=== PATIENT | male | born 1985 | race African-American/Black ===

== ENCOUNTER 2018-05-01 17:50 | Emergency (ER) | payer SELFPAY ==
[2018-05-01] MEDS ORDERED: Mag-Al 1200 mg/1200 mg/30 ML UDCUP ONE (18:53)
[2018-05-01] MEDS ORDERED: Lidocaine Viscous Sol 2% 15 ml UD Cup ONE (18:53)
[2018-05-01 19:08] LABS: #Basophils 0.1 thou/uL (0.0-0.2); #Eosinphils 0.2 thou/uL (0.0-0.7); #Lymphocytes 2.1 thou/uL (1.20-3.40); #Monocytes 0.4 thou/uL (0.11-0.59); #Neutrophils 1.9 thou/uL (1.40-6.50); %Basophils 1.7 % (0.0-1.0); %Eosinophils 4.6 % (0.0-10.0); %Lymphocytes 44.8 % (21.0-51.0); %Monocytes 9.2 % (0.0-10.0); %Neutrophils 39.8 % (42.0-75.0); Hemoglobin 15.2 g/dL (14.0-18.0); Mean Corpuscular HGB CONC 34.6 g/dL (32.0-36.0); Mean Corpuscular Volume 92.3 fL (78.0-98.0); Mean Platelet Volume 8.5 fL (7.4-10.4); Platelet Count 252 thou/uL (130-400); RBC Distribution Width 11.4 % (11.5-14.5); Red Blood Cell (RBC) Count 4.75 mill/uL (4.70-6.10); White Blood Cell (WBC) Count 4.7 thou/uL (4.8-10.8)
[2018-05-01 19:27] LABS: ALT (SGPT) 19 U/L (8-55); AST (SGOT) 16 U/L (5-34); Albumin 3.7 g/dL (3.5-5.0); Alkaline Phosphatase 64 U/L (40-150); Anion Gap 11 mmol/L (10-20); BUN (Urea Nitrogen) 11 mg/dL (8.9-20.6); Bilirubin, Total 0.6 mg/dL (0.2-1.2); Calc. Creatinine Clearance 0 mL/min (70-130); Calcium 9.2 mg/dL (7.8-10.44); Carbon Dioxide 24 mmol/L (22-29); Chloride 106 mmol/L (98-107); Estimated GFR-MDRD Greater than 90; Globulin 3.3 g/dL (2.4-3.5); Glucose 93 mg/dL (70-105); Lipase 37 U/L (8-78); Sodium 137 mmol/L (136-145)
--- NOTE | 2018-05-01 19:34 | RAD ---
PA AND LATERAL CHEST: 05/01/18 HISTORY: Chest pain. Heart size and mediastinum are within normal limits. The lungs are clear of infiltrates. No significa nt bony findings. IMPRESSION: No active intrathoracic disease. POS: [facility]
== END 2018-05-01 19:56 | disposition home or self-care (01) ==
LOC: ERS 17:50
DX: R10.13 Epigastric pain (principal); F17.210 Nicotine dependence, cigarettes, uncomplicated
CPT/HCPCS: 36415; 71046; 80053; 83690; 85025; 93005

== ENCOUNTER 2019-08-25 09:09 | Inpatient (IN) | payer SELFPAY ==
[2019-08-25] MEDS ORDERED: Acetaminophen 500 MG TAB ONE (09:51)
[2019-08-25] MEDS ORDERED: Metoclopramide HCl 10 MG/2 ML VIAL ONE (09:52)
[2019-08-25] MEDS ORDERED: diphenhydrAMINE 50 MG/ML VIAL ONE (09:52)
[2019-08-25 10:15] LABS: #Basophils 0.1 thou/uL (0.0-0.2); #Eosinphils 0.1 thou/uL (0.0-0.7); #Lymphocytes 1.7 thou/uL (1.20-3.40); #Monocytes 0.7 thou/uL (0.11-0.59); #Neutrophils 2.7 thou/uL (1.40-6.50); %Basophils 0.3 % (0.0-1.0); %Eosinophils 1.7 % (0.0-10.0); %Lymphocytes 32.5 % (21.0-51.0); %Monocytes 10.5 % (0.0-10.0); %Neutrophils 52.2 % (42.0-75.0); Mean Platelet Volume 9.6 fL (7.4-10.4); Platelet Count 213 thou/uL (130-400); RBC Distribution Width 11.4 % (11.5-14.5); Red Blood Cell (RBC) Count 4.62 mill/uL (4.70-6.10); White Blood Cell (WBC) Count 5.2 thou/uL (4.8-10.8)
[2019-08-25 10:19] LABS: ALT (SGPT) 39 U/L (8-55); AST (SGOT) 24 U/L (5-34); Albumin 3.6 g/dL (3.5-5.0); Alkaline Phosphatase 110 U/L (40-110); Anion Gap 24 mmol/L (10-20); BUN (Urea Nitrogen) 20 mg/dL (8.9-20.6); Bilirubin, Total 0.6 mg/dL (0.2-1.2); CK (CPK) 88 U/L (30-200); Calc. Creatinine Clearance 0 mL/min (70-130); Calcium 9.6 mg/dL (7.8-10.44); Carbon Dioxide 17 mmol/L (22-29); Chloride 95 mmol/L (98-107); Estimated GFR-MDRD 55; Globulin 4.1 g/dL (2.4-3.5); Lipase 47 U/L (8-78); Potassium 4.3 mmol/L (3.5-5.1); Protein, Total 7.7 g/dL (6.0-8.3); Sodium 132 mmol/L (136-145)
[2019-08-25 10:26] LABS: Glucose 679 mg/dL (70-105); Mean Corpuscular Hemoglobin 30.3 pg (27.0-31.0)
[2019-08-25 10:27] LABS: Mean Corpuscular HGB CONC 34.8 g/dL (32.0-36.0)
--- NOTE | 2019-08-25 11:03 | RAD ---
Chest one view HISTORY: Dyspnea. COMPARISON: 05/01/2018. FINDINGS: Cardiac silhouette is magnified by projection. Shallow inspiration accentuates pulmonary ma rkings. Mediastinum is rotated rightward with the patient. No lobar consolidation or evidence of pneumothorax. property assessment monitor leads overlie the chest. IMPRESSION : No abnormalities are demonstrated.
[2019-08-25] MEDS ORDERED: Insulin Regular 300 UNITS/3 ML VIAL ONE (11:43)
[2019-08-25] MEDS ORDERED: Insulin Regular 100 units/100 ml in NS IVPB SCH ×2 (12:00→14:00)
--- NOTE | 2019-08-25 12:02 | PDOC.FPRHP ---
- History of Present Illness Chief Complaint: dehydration History of Present Illness: This 34-yo male without PCP presents complaining of R-sided headache, polyuria, polydipsia, and feeling dehydrated. Reports symptoms have been ongoing for about 2 months. He denies nausea, vomiting, abdominal pain, dysuria, and hematuria. He has been able to eat and drink without difficulty. His only past medical history is heartburn for which he takes OTC medications. For his headache he tried Tylenol and ibuprofen which has not helped much. ED Course: Received 2L NS and insulin drip started. - Allergies/Adverse Reactions Allergies Allergy/AdvReac Type Severity Reaction Status Date / Time No Known Allergies Allergy Unverified 08/25/19 11:57 - Home Medications Medication Instructions Recorded Confirmed Type Acetaminophen [Tylenol Extra 500 mg PO Q8H PRN 08/26/19 08/26/19 History Strength] Comments: Denies. No home medications besides OTC mentioned above. - History PMHx: mild heartburn PSHx: unobtainable due to patient lethargy FHx: Dad: diabetes, adult onset Social: unobtainable due to patient lethargy - Review of Systems ROS unobtainable: due to mental status General: reports: fever/chills, fatigue Respiratory: reports: cough (very mild and intermittent) Gastrointestinal: denies: nausea, vomiting, diarrhea, constipation, abdominal pain, GI bleeding Genitourinary: denies: dysuria - Vital signs BP: 124/93, Pulse: 95, Resp: 18, Temp: 98.6 (Oral), Pain: 4, O2 sat: 96 on ( Room Air), Time: 08/25/2019 12:45. Weight: 63 kg. - Physical Exam -Constitutional: lethargic appearing, AxO x3 but some inappropriate answers to questions HEENT: normocephalic and atraumatic, PERRLA, EOMI, no scleral icterus, grossly normal hearing, normal nasal mucosa, MMM, oropharynx clear Neck: supple, trachea midline, no LAD, no thyromegaly Heart: RRR, normal S1/S2, no murmurs/rubs/gallops, pulses present (equal and 2+ radial and DP pulses) Lungs: CTAB, no respiratory distress Abdomen: soft, non-tender, bowel sounds present, no masses/distention Musculoskeletal: normal structure, normal tone Skin: no rash/lesions, no jaundice Heme/Lymphatic: no unusual bruising or bleeding, no purpura Psychiatric: normal mood and affect FMR H&P: Results - Labs Result Diagrams: 08/25/19 09:40 08/26/19 03:22 Lab results: WBC 5.2 thou/uL (4.8-10.8) 08/25/19 09:40 Hgb 14.0 g/dL (14.0-18.0) 08/25/19 09:40 Hct 40.2 % (42.0-52.0) L 08/25/19 09:40 MCV 87.0 fL (78.0-98.0) 08/25/19 09:40 Plt Count 213 thou/uL (130-400) 08/25/19 09:40 Neutrophils % 52.2 % (42.0-75.0) 08/25/19 09:40 Sodium 132 mmol/L (136-145) L 08/25/19 09:40 Potassium 4.3 mmol/L (3.5-5.1) 08/25/19 09:40 Chloride 95 mmol/L (98-107) L 08/25/19 09:40 Carbon Dioxide 17 mmol/L (22-29) L 08/25/19 09:40 BUN 20 mg/dL (8.9-20.6) 08/25/19 09:40 Creatinine 1.73 mg/dL (0.7-1.3) H 08/25/19 09:40 Glucose 679 mg/dL (70-105) H* 08/25/19 09:40 Calcium 9.6 mg/dL (7.8-10.44) 08/25/19 09:40 Total Bilirubin 0.6 mg/dL (0.2-1.2) 08/25/19 09:40 AST 24 U/L (5-34) 08/25/19 09:40 ALT 39 U/L (8-55) 08/25/19 09:40 Alkaline Phosphatase 110 U/L (40-110) 08/25/19 09:40 Creatine Kinase 88 U/L (30-200) 08/25/19 09:40 Serum Total Protein 7.7 g/dL (6.0-8.3) 08/25/19 09:40 Albumin 3.6 g/dL (3.5-5.0) 08/25/19 09:40 Lipase 47 U/L (8-78) 08/25/19 09:40 - Radiology Interpretation Chest x-ray Status: report reviewed by me (normal) FMR H&P: A/P - Problem List (1) New onset type 2 diabetes mellitus Current Visit: No Status: Acute Code(s): E11.9 - TYPE 2 DIABETES MELLITUS WITHOUT COMPLICATIONS (2) Acute kidney injury Current Visit: No Status: Acute Code(s): N17.9 - ACUTE KIDNEY FAILURE, UNSPECIFIED (3) Hyperosmolar hyperglycemic coma due to diabetes mellitus without ketoacidosis Current Visit: Yes Status: Acute Code(s): E11.01 - TYPE 2 DIABETES MELLITUS WITH HYPEROSMOLARITY WITH COMA - Plan 34-yo Male admitted for : Hyperosmolar Hyperglycemic State New onset likely Type 2 diabetes mellitus - DKA protocol, insulin drip started - NPO strict - strict I/Os - ABG pH 7.32, beta-hydroxybutyrate 3.3, bicarb 17 - anion gap of 20 - reassess mental status in AM - risk stratrifying labs in AM - A1C 13.6% - Diabetes education Code: FULL VTE PPx: LVX GI ppx: none Fluids: per DKA protocol Disposition/LOS: admit to IMCU for DKA protocol. Anticipate LOS > 48 hr. FMR H&P: Upper Level - Plan Date/Time: 08/25/19 1201 IAlis, have evaluated this patient and agree with findings/plan as outlined by inclusion intern resident. Pertinent changes/additions are listed here. Pt is a 34yo M with no PMH presenting for 1 month hx of polydipsia, polyuria and general unwell feeling. He also endorses REBOLLEDO. +Fhx of diabetes in father. He does endorse epigastric abd pain that is mild. Otherwise denies fever, cough , skin infection, dysuria. VS: BP 135/84, P98, R16, T98.3, O296%RA PE: Gen: well developed, NAD HEENT: Dry MM, no LAD, no oral lesions Heart: RRR, no murmurs or extra sounds. Distal pulses 2+ Lungs: CTAB, no wheezing. No increased work of breathing Abd: soft, nontender, BS+ Ext: no cyanosis or edema Skin: no rashes or wounds present Psych: AOx3, nonsensical to some degree Pertinent Labs/Imaging: CXR: no acute findings CBC unremarkable ABG: ph-7.3, pCO2-033.2, PO2-86.8, Bicarb-16.8 Glucose: 679 A UA proteinuria and glucosuria with ketones Betahydroxybutyrate- 3.3 A/P: HHS: -place on insulin drip and IVF per DKA protocol, does have anion gap and beta- hydroxybutyrate >3 but pH >7.3. BMP q4h. NPO -no suspected infection and trop wnl. Likely cause is longstanding DM untreated. WBC wnl. Add lipase with reported epigastric pain. New onset Likely T2DM: -A1c pending -PO meds vs insulin at discharge. Anion Gap Metabolic Acidosis: -related to beta-hydroxybutyrate vs other acid such as lactic acid. MARIBELL vs CKD: -likely MARIBELL related to dehydration. -trend Dispo: Stable. DVT PPx: Lovenox Addendum - Attending - Attending Attestation Date/Time: 08/26/19 9243 I personally evaluated the patient and discussed the management with Dr. Shah on 08/25/2019 I agree with the History, Examination, Assessment and Plan documented above with any addition or exceptions noted below - Pt is a 34yo M with no PMH presenting for 1 month hx of polydipsia, polyuria and general unwell feeling. He also endorses REBOLLEDO. (+) Fhx of diabetes in father. He does endorse epigastric abd pain that is mild. Otherwise denies fever, cough, skin infection, dysuria. Denies any weight loss. PMH/PSH.Meds/SH reviewed and agree with resident's documentation. Aferile VSS. Exam repeated by me and agree with resident's documentation. Labs: H/H = 14.0/40.2, WBC=5.2, Id=726, K=4.3, Cl=95, CO2=17, BUN /Cr= 20/1.73, Gluc= 679. (+)beta-hydroxybutyrate. A/P: 1) HHS- continue iVF and insulin dri; monitor accuchecks. 2) Newly diagnosed DM - nutrition and education regarding DM, insulin administration, BG monitoring.
[2019-08-25 12:10] LABS: Base Excess-Venous -3.6 mmol/L (-2.0 to 3.0); Bicarbonate (HCO3v) 20.2 mmol/L (22.0-28.0); CO2 Tension (PvCO2) 32.3 mmHg (40.0-50.0); Calcium, Ionized 1.06 mmol/L (See Comments:); Chloride 106 mmol/L (98-107); Hemoglobin - Calc 13.2 g/dL (14.0-18.0); Potassium 5.8 mmol/L (3.5-5.1); Sodium 136 mmol/L (138-145); T. Carbon Dioxide 21.2 mmol/L (22.0-28.0); vO2 Saturation-calc 96.9 % (60.0-85.0)
[2019-08-25 12:17] LABS: Actual Bicarbonate (HCO3a) 16.8 mEq/L (22-28); Analyzer IN Cardio ER; Base Excess (BEa) -8.1 mEq/L (-2.0 to +3.0); CO2 Tension 33.2 mmHg (35.0-45.0); Carboxyhemoglobin (COHb) 0.1 gm% (0.0-3.0); Hemoglobin (Hb) 14.1 g/dL (14.0-18.0); O2 Tension (PaO2) 86.8 mmHg (80.0-100.0); Potassium - ABG Lab 4.04 mmol/L (3.70-5.30); pH, Arterial 7.32 (7.35-7.45)
[2019-08-25 12:18] LABS: Puncture Site RRA
[2019-08-25] MEDS ORDERED: NS 0.9% w/ 20 MEQ KCL 1,000 ML IV PRN ×4 (12:29→14:09)
[2019-08-25] MEDS ORDERED: Acetaminophen 325 MG TAB PO PRN (12:29)
[2019-08-25] MEDS ORDERED: Dextrose 5 %-0.45 % NaCl 1,000 ML IV PRN ×2 (12:29→14:01)
[2019-08-25] MEDS ORDERED: Sodium Chloride 0.9% 1,000 ML IV PRN ×8 (12:29→14:16)
[2019-08-25] MEDS ORDERED: Ondansetron ODT 4 MG TAB PO PRN ×2 (12:29→14:11)
[2019-08-25] MEDS ORDERED: Ondansetron PF 4 MG/2 ML Vial IVP PRN ×2 (12:29→14:10)
[2019-08-25] MEDS ORDERED: D5 1/2 NS w/20 mEq KCL 1,000 ML IV PRN ×2 (12:29→14:04)
[2019-08-25] MEDS ORDERED: [UNRECOGNIZED DRUG - OTHER] IVPB ONE (12:29)
[2019-08-25] MEDS ORDERED: HUMULIN R 100 UNITS in Sodium Chloride 0.9% 100 ML IVPB SCH (12:30)
[2019-08-25] MEDS ORDERED: Potassium Chloride 20 MEQ TAB PO PRN ×2 (12:44→14:16)
[2019-08-25] MEDS ORDERED: CCU ELECTROLYTE REPLACEMENT PROTOCOL FS PRN (12:44)
[2019-08-25] MEDS ORDERED: Potassium Phosphate 9 MMOL in Sodium Chloride 0.9% 100 ML IVPB PRN ×2 (12:44→14:21)
[2019-08-25] MEDS ORDERED: Potassium Chloride 40 MEQ in Sodium Chloride 0.9% 250 ML 250 ML IVPB PRN ×2 (12:44→14:19)
[2019-08-25] MEDS ORDERED: Magnesium Oxide 400 MG TAB PO PRN ×4 (12:44→14:07)
[2019-08-25] MEDS ORDERED: Potassium Phosphate 12 MMOL in Sodium Chloride 0.9% 250 ML 250 ML IV PRN ×2 (12:44→14:21)
[2019-08-25] MEDS ORDERED: Potassium Chloride 40 MEQ in Premix Bag 1 BAG IVPB PRN ×2 (12:44→14:20)
[2019-08-25] MEDS ORDERED: Magnesium 2 GM/50 ML 2 GM in Premix Bag 1 BAG IVPB PRN ×2 (12:44→14:06)
[2019-08-25] MEDS ORDERED: PHOS-NAK 1 PKT PACK PO PRN ×4 (12:44→14:12)
[2019-08-25] MEDS ORDERED: Potassium Phosphate 15 MMOL in Sodium Chloride 0.9% 250 ML 250 ML IV PRN ×2 (12:44→14:21)
[2019-08-25] MEDS ORDERED: Enoxaparin Sodium 40 MG/0.4 ML SYRINGE SC SCH ×2 (12:45→14:15)
[2019-08-25 12:59] LABS: Hemoglobin A1c 13.6 % (4.0-6.0)
[2019-08-25 13:14] LABS: Anion Gap 22 mmol/L (10-20); BUN (Urea Nitrogen) 17 mg/dL (8.9-20.6); Calc. Creatinine Clearance 0 mL/min (70-130); Calcium 8.9 mg/dL (7.8-10.44); Carbon Dioxide 13 mmol/L (22-29); Chloride 106 mmol/L (98-107); Estimated GFR-MDRD 67; Glucose 490 mg/dL (70-105); Magnesium 2.1 mg/dL (1.6-2.6); Phosphorus 2.8 mg/dL (2.3-4.7); Sodium 137 mmol/L (136-145)
[2019-08-25 13:29] LABS: Bacteria/HPF None Seen HPF (None Seen); Bilirubin Negative (Negative); Blood, Urine Negative (Negative); Clarity Clear (Clear); Glucose, Urine (Dipstick) Greater than 1000 mg/dL (Negative); Leukocyte Negative Leu/uL (Negative); Nitrite Negative (Negative); Protein, Urine (Dipstick) 50 mg/dL (Neg-Trace); RBC/HPF None Seen HPF (0-3); Squamous Epithelial None Seen HPF (0-3); Urobilinogen Normal mg/dL (Less than 2); WBC/HPF 0-3 HPF (0-3)
[2019-08-25] MEDS: Acetaminophen 325 MG TAB PO PRN ×3 (14:34→23:16)
[2019-08-25 14:38] LABS: Amphetamine Not Detected (NotDetected); Barbiturates Screen Not Detected (NotDetected); Benzodiazepine Screen Not Detected (NotDetected); Cocaine Metabolite Screen Not Detected (NotDetected); Medtox Control Line Valid? VALID (VALID); Medtox Reader # READER 4; Methadone Not Detected (NotDetected); Methamphetamine Not Detected (NotDetected); Opiate Screen Not Detected (NotDetected); Oxycodone Screen Not Detected (NotDetected); Phencyclidine (PCP) Not Detected (NotDetected); THC/Cannabinoid Screen Not Detected (NotDetected); Tricyclic Screen Not Detected (NotDetected)
[2019-08-25 15:27] VITALS: BMI 34.9
[2019-08-25 18:54] LABS: Anion Gap 17 mmol/L (10-20); BUN (Urea Nitrogen) 13 mg/dL (8.9-20.6); Calc. Creatinine Clearance 144 mL/min (70-130); Calcium 8.3 mg/dL (7.8-10.44); Carbon Dioxide 19 mmol/L (22-29); Chloride 111 mmol/L (98-107); Estimated GFR-MDRD Greater than 90; Glucose 139 mg/dL (70-105); Potassium 3.9 mmol/L (3.5-5.1); Sodium 143 mmol/L (136-145)
[2019-08-25] MEDS ORDERED: Insulin Glargine 52 UNITS in Pre-Filled Syringe 1 EACH SC SCH (21:00)
[2019-08-25] MEDS: Lactated Ringer's 1,000 ML IV SCH (22:37)
[2019-08-26] MEDS ORDERED: Dextrose 50% Abboject 50 ML SYRINGE SLOW IVP PRN (01:04)
[2019-08-26] MEDS ORDERED: Dextrose 5% in Water 1,000 ML IV PRN (01:04)
[2019-08-26] MEDS ORDERED: HumaLOG 300 UNITS/3 ML VIAL SC PRN ×2 (01:04→17:33)
[2019-08-26] MEDS ORDERED: diphenhydrAMINE 25 MG CAP PO SCH (02:45)
[2019-08-26] MEDS: Acetaminophen 325 MG TAB PO PRN ×5 (02:49→23:53)
[2019-08-26 04:10] LABS: Anion Gap 13 mmol/L (10-20); BUN (Urea Nitrogen) 9 mg/dL (8.9-20.6); Calc. Creatinine Clearance 127 mL/min (70-130); Calcium 7.8 mg/dL (7.8-10.44); Carbon Dioxide 21 mmol/L (22-29); Chloride 105 mmol/L (98-107); Estimated GFR-MDRD 83; Glucose 355 mg/dL (70-105); Potassium 3.6 mmol/L (3.5-5.1); Sodium 135 mmol/L (136-145)
--- NOTE | 2019-08-26 06:20 | PDOC.FM ---
- Subjective Subjective: Ate some pudding and a banana last night. Reports drinking gatorade and some water. Willing to try breakfast. He is off the insulin gtt and received Lantus last night. - Objective MAR Reviewed: Yes Vital Signs & Weight: Vital Signs (12 hours) Temp Pulse Ox 08/26/19 04:00 97.6 F 08/25/19 23:42 97.4 F L 08/25/19 20:00 97.5 F L 95 08/25/19 19:29 99 Weight Weight 104.326 kg Most Recent Monitor Data Heart Rate from ECG 71 NIBP 139/96 NIBP BP-Mean 110 Respiration from ECG 9 SpO2 99 I&O: 08/24/19 08/25/19 08/26/19 06:59 06:59 06:59 Intake Total 4693 Output Total 1550 Balance 3143 Result Diagrams: 08/25/19 09:40 08/26/19 03:22 Phys Exam - Physical Examination Constitutional: NAD Dry MM Neck: supple Respiratory: no wheezing, clear to auscultation bilateral Cardiovascular: RRR, no significant murmur Gastrointestinal: soft Musculoskeletal: no edema Neurological: moves all 4 limbs Psychiatric: normal affect, A&O x 3 Skin: normal turgor Dx/Plan - Plan Plan: New Onset DM - Will provide DM education - Labs pending DKA, resolved - Started on long acting insulin. Titrate based on BG. CC diet - Strict I&Os - A1c 13.6% - Gap closed. - DM education Code Status: FULL DVT Ppx: Lovenox Addendum - Attending - Attending Attestation Date/Time: 08/26/19 1413 I personally evaluated the patient and discussed the management with Dr. Hawley I agree with the History, Examination, Assessment and Plan documented above with any addition or exceptions noted below - 1) HHS -resolved; changing to SW insulin last night. Tolerating diet. Plan to adjust insulin. Transfer to medical floor. 2) DM- Wll check insulin autoantibodies.
[2019-08-26] MEDS: HumaLOG 300 UNITS/3 ML VIAL SC PRN ×3 (06:57→17:03)
[2019-08-26] MEDS ORDERED: Enoxaparin Sodium 40 MG/0.4 ML SYRINGE SC SCH (09:00)
[2019-08-26] MEDS ORDERED: Insulin Glargine 15 UNITS in Pre-Filled Syringe 1 EACH SC SCH (09:00)
[2019-08-26] MEDS ORDERED: Insulin Glargine 20 UNITS in Pre-Filled Syringe 1 EACH SC SCH (09:00)
[2019-08-26] MEDS: Lactated Ringer's 1,000 ML IV SCH ×2 (09:04→17:21)
[2019-08-26] MEDS: Enoxaparin Sodium 40 MG/0.4 ML SYRINGE SC SCH (09:06)
[2019-08-27 05:42] LABS: Anion Gap 12 mmol/L (10-20); BUN (Urea Nitrogen) 7 mg/dL (8.9-20.6); Calc. Creatinine Clearance 157 mL/min (70-130); Calcium 8.1 mg/dL (7.8-10.44); Carbon Dioxide 24 mmol/L (22-29); Chloride 103 mmol/L (98-107); Estimated GFR-MDRD Greater than 90; Glucose 209 mg/dL (70-105); Sodium 136 mmol/L (136-145)
--- NOTE | 2019-08-27 07:11 | PDOC.FM ---
Addendum entered and electronically signed by Camille Hawley MD 08/27/19 07:52 : Hypokalemia - Will replace with KCl PO Original Note: - Subjective Subjective: Headache and blurry vision this morning, reports he has right sided dental pain that is associated with it. Eating and drinking. - Objective MAR Reviewed: Yes Vital Signs & Weight: Vital Signs (12 hours) Temp Pulse Resp BP Pulse Ox 08/27/19 04:00 98.3 F 61 20 165/96 H 99 08/26/19 23:45 98.7 F 63 20 133/82 99 08/26/19 20:00 99 08/26/19 19:28 97.6 F Weight Weight 104.326 kg Most Recent Monitor Data Heart Rate from ECG 62 NIBP 168/106 NIBP BP-Mean 126 Respiration from ECG 14 SpO2 93 I&O: 08/26/19 08/27/19 08/28/19 06:59 06:59 06:59 Intake Total 4933 4371 Output Total 2100 2400 Balance 2833 1971 Result Diagrams: 08/25/19 09:40 08/27/19 04:50 Phys Exam - Physical Examination Constitutional: NAD HEENT: PERRLA, moist MMs Neck: supple Respiratory: no wheezing, clear to auscultation bilateral Cardiovascular: RRR Gastrointestinal: soft, non-tender Musculoskeletal: pulses present Neurological: non-focal, moves all 4 limbs CN 2-12 intact Psychiatric: normal affect, A&O x 3 Skin: normal turgor Dx/Plan - Plan Plan: New Onset DM - Learning Coordinator consulted, pending evaluation - Labs pending - A1c 13.6% - Titrate insulin DKA, resolved Code Status: FULL DVT Ppx: Lovenox Addendum - Attending - Attending Attestation Date/Time: 08/27/19 7904 I personally evaluated the patient and discussed the management with Dr. Hawley I agree with the History, Examination, Assessment and Plan documented above with any addition or exceptions noted below.- Patient without complaints. Afebrile VSS A/P: 1) New onset DM- BG improved; Plan to d/c home today. F/U at [facility] in 1 week
[2019-08-27] MEDS: Acetaminophen 325 MG TAB PO PRN (07:44)
[2019-08-27] MEDS: Enoxaparin Sodium 40 MG/0.4 ML SYRINGE SC SCH (07:45)
[2019-08-27 07:52] VITALS: BP 152/85; TEMP 98.6
[2019-08-27] MEDS ORDERED: HumaLOG 300 UNITS/3 ML VIAL SC SCH ×3 (08:00→17:00)
[2019-08-27] MEDS ORDERED: Potassium Chloride 20 MEQ TAB PO SCH (08:00)
[2019-08-27] MEDS: Lactated Ringer's 1,000 ML IV SCH (08:37)
[2019-08-27] MEDS ORDERED: Insulin Glargine 60 UNITS in Pre-Filled Syringe 1 EACH SC SCH (09:00)
[2019-08-27] MEDS ORDERED: Penicillin V Potassium 250 MG TAB PO SCH (13:00)
--- NOTE | 2019-08-28 11:56 | DIS ---
DATE OF ADMISSION: 08/25/2019 DATE OF DISCHARGE: 08/27/2019 RESIDENT: Camille Hawley, PGY-2. DISCHARGE ATTENDING: Uyen Burton MD. CONSULTS: None. PROCEDURE: Chest x-ray on 08/25/2019, no abnormalities are demonstrated. PRIMARY DIAGNOSES: 1. New onset diabetes. 2. DKA, resolved. DISCHARGE MEDICATIONS: 1. Glucometer with supplies. 2. Tylenol 500 mg p.r.n. 3. Insulin glargine 60 units subcu daily. 4. Humalog KwikPen 6 units subcu t.i.d. with meals. 5. Penicillin 250 mg q.i.d. x7 days. 6. If unable to afford Lantus and Humalog, recommend 30 units of 70/30 b.i.d. Discontinued medications, none. HISTORY OF PRESENT ILLNESS AND HOSPITAL COURSE: Mr. Berry is a 34-year-old male, who presented with headache, polyuria, polydipsia, and dehydration of two months duration. His initial labs were notable for pH of 7.32, pCO2 of 33.2, bicarb 16.8, potassium 5.8, glucose 679, creatinine 1.73, normal TSH, beta- hydroxybutyrate 3. He had anion gap of 20 and A1c 13.6. He was given 2 L normal saline and started on insulin drip. His vital signs were stable. Chest x-ray normal. He was titrated off the insulin drip and tolerating PO, currently on Lantus and short-acting with meals. He received diabetes education from myself and nutrition guidance from the dietitian prior to discharge. He was also able to administer his own insulin and Accu-Cheks and had a good understanding of his disease and the importance of following up within 5 days. He did report some right-sided tooth pain causing headache. This was likely due to dental abscess. He was started on penicillin for this and recommended following up with a dentist. DISPOSITION: Stable. DISCHARGE INSTRUCTIONS: 1. Location: Home. 2. Diet: Carb consistent. 3. Activity: No restrictions. 4. Follow up with dentist within 3 days and [facility] within 5 days. Job ID: [id number]
== END 2019-08-27 16:14 | disposition home or self-care (01) | DRG 638 ==
LOC: ERS 09:09 → IMCU/EMU 13:41 → T4-A 08-26 20:51
PROVIDERS: ADMIT Student in an Organized Health Care Education/Training Program; ATTEND Student in an Organized Health Care Education/Training Program
DX: E11.10 Type 2 diabetes mellitus with ketoacidosis without coma (principal); N17.9 Acute kidney failure, unspecified; E86.0 Dehydration; K04.7 Periapical abscess without sinus; E87.6 Hypokalemia; R12 Heartburn
CPT/HCPCS: 36415; 36416; 71045; 80048; 80053; 80306; 81003; 81015; 82010; 82330; 82550; 82803; 82805; 83036; 83519; 83690; 83735; 83930; 84100; 84443; 84484; 84681; 85025; 86341; 96361; 96365; 96375; 96376; J1200; J1650; J1815; J2765; J3480; J3490; Q0163

== ENCOUNTER 2020-11-17 15:34 | Emergency (ER) | payer SELFPAY | END 2020-11-17 16:55 | disposition left against medical advice (07) | LOC: ERS 15:34 | DX: Z53.21 Procedure and treatment not carried out due to patient leaving prior to being seen by health care provider (principal) ==

== ENCOUNTER 2022-04-10 13:07 | Emergency (ER) | payer OTHER ==
[2022-04-10 13:48] LABS: #Eosinphils 0.1 thou/uL (0.0-0.7); #Monocytes 0.4 thou/uL (0.11-0.59); #Neutrophils 1.9 thou/uL (1.40-6.50); %Eosinophils 3.1 % (0.0-10.0); %Lymphocytes 45.6 % (21.0-51.0); %Neutrophils 42.3 % (42.0-75.0); Hemoglobin 16.9 g/dL (14.0-18.0); Mean Corpuscular HGB CONC 35.3 g/dL (32.0-36.0); Mean Corpuscular Hemoglobin 32.6 pg (27.0-31.0); Mean Corpuscular Volume 92.2 fl (78.0-98.0); Mean Platelet Volume 8.7 fL (7.4-10.4); Platelet Count 230 thou/uL (130-400); Red Blood Cell (RBC) Count 5.19 mill/uL (4.70-6.10); White Blood Cell (WBC) Count 4.4 thou/uL (4.8-10.8)
[2022-04-10 14:10] LABS: ALT (SGPT) 43 U/L (8-55); AST (SGOT) 24 U/L (5-34); Albumin 4.4 g/dL (3.5-5.0); Alkaline Phosphatase 88 U/L (40-110); Anion Gap 16 mmol/L (10-20); BUN (Urea Nitrogen) 12 mg/dL (8.9-20.6); Bilirubin, Total 0.8 mg/dL (0.2-1.2); Calc. Creatinine Clearance 0 mL/min (70-130); Calcium 9.7 mg/dL (7.8-10.44); Carbon Dioxide 22 mmol/L (22-29); Chloride 100 mmol/L (98-107); Estimated GFR 66; Globulin 3.4 g/dL (2.4-3.5); Glucose 327 mg/dL (70-105); Potassium 4.1 mmol/L (3.5-5.1); Protein, Total 7.8 g/dL (6.0-8.3); Sodium 134 mmol/L (136-145)
[2022-04-10 15:14] LABS: Bacteria/HPF None Seen HPF (None Seen); Bilirubin Negative (Negative); Blood, Urine Negative (Negative); Clarity Clear (Clear); Glucose, Urine (Dipstick) Greater than 1000 mg/dL (Negative); Ketone, Urine Negative (Negative); Leukocyte Negative Leu/uL (Negative); Nitrite Negative (Negative); Protein, Urine (Dipstick) 70 mg/dL (Neg-Trace); RBC/HPF 0-3 HPF (0-3); Specific Gravity, Urine 1.016 (1.002-1.036); Squamous Epithelial 0-3 HPF (0-3); Urobilinogen Normal mg/dL (Less than 2); WBC/HPF 0-3 HPF (0-3); pH, Urine 5.5 (5.0-9.0)
== END 2022-04-10 17:32 | disposition home or self-care (01) ==
LOC: ERS 13:07
DX: E11.65 Type 2 diabetes mellitus with hyperglycemia (principal); Z79.4 Long term (current) use of insulin
CPT/HCPCS: 36415; 36416; 80053; 81003; 81015; 82010; 85025; 99284

== ENCOUNTER 2022-12-15 16:59 | Emergency (ER) | payer OTHER | END 2022-12-15 18:44 | disposition home or self-care (01) | LOC: ERS 16:59 | DX: N48.89 Other specified disorders of penis (principal); E11.9 Type 2 diabetes mellitus without complications; I10 Essential (primary) hypertension | CPT/HCPCS: 87070; 87077; 87205; 99283 ==